=== PATIENT | female | born 2000 | race Caucasian/White ===

== ENCOUNTER 2019-02-25 18:48 | Observation (INO) | payer OTHER ==
[~2019-02-25] VITALS: Ht 162.6 cm; Wt 59.9 kg
[2019-02-25 21:51] VITALS: BP 115/74
== END 2019-02-25 21:45 | disposition home or self-care (01) ==
LOC: MLD 18:48
PROVIDERS: ADMIT Obstetrics & Gynecology; ATTEND Obstetrics & Gynecology
DX: O62.9 Abnormality of forces of labor, unspecified (principal); O99.89 Other specified diseases and conditions complicating pregnancy, childbirth and the puerperium; M54.9 Dorsalgia, unspecified; Z3A.39 39 weeks gestation of pregnancy
CPT/HCPCS: G0378